=== PATIENT | male | born 1990 | race Caucasian/White ===

== ENCOUNTER 2024-02-19 10:44 | Emergency (ER) | payer MEDICAID ==
[~2024-02-19] VITALS: Ht 162.6 cm; Wt 104.3 kg
[2024-02-19 10:54] VITALS: BP 119/78; RESP 16; TEMP 98.7; O2SAT 96
[2024-02-19 10:55] VITALS: PULSE 105
[2024-02-19] MEDS ORDERED: TOPUD MT (15:01)
[2024-02-19] MEDS ORDERED: AMOX-494 MT (15:01)
[2024-02-19] MEDS ORDERED: IBUP-1525 MT (15:01)
== END 2024-02-19 15:21 | disposition home or self-care (01) ==
LOC: ER 10:44
DX: J03.90 Acute tonsillitis, unspecified (principal); R51.9 Headache, unspecified; R05.9 Cough, unspecified
CPT/HCPCS: 99281

== ENCOUNTER 2025-08-18 08:00 | Emergency (ER) | payer MEDICAID ==
[~2025-08-18] VITALS: Ht 167.6 cm; Wt 91.0 kg
[~2025-08-18 08:00] MED LIST: AMOX-494 MT; IBUP-1525 MT; TOPUD MT
[2025-08-18 08:10] VITALS: O2SAT 97
[2025-08-18 08:11] VITALS: BP 133/95; PULSE 71; RESP 18; TEMP 37; O2SAT 99
[2025-08-18] MEDS ORDERED: BENZ1LOZ58 PO (09:10)
[2025-08-18] MEDS ORDERED: PENICILLIN G BENZATHINE 1,200,000 UNITS/2ML SYR IM ONE (09:15)
[2025-08-18] MEDS ORDERED: AMOX1TAB16 MT (09:31)
[2025-08-18] MEDS: AMOXICILLIN/POTASSIUM CLAVULANATE 875/125MG TAB PO ONE (09:45)
== END 2025-08-18 09:46 | disposition home or self-care (01) ==
LOC: ER 08:07
DX: J02.9 Acute pharyngitis, unspecified (principal); Z79.1 Long term (current) use of non-steroidal anti-inflammatories (NSAID)
CPT/HCPCS: 99283; J0561